=== PATIENT | male | born 1945 | race Caucasian/White ===

== ENCOUNTER → 2024-07-17 09:00 | Outpatient (REF) | payer MEDICARE, OTHER, SELFPAY ==
[2024-07-17 10:34] LABS: % Basophils 1.1 % (0-2); % Eosinophils 1.6 % (0-6); % Immature Granulocytes 0.4 % (0-0.5); % Lymphocytes 18.2 % (20.5-51.1); % Monocytes 9.1 % (1.7-9.3); % Neutrophils 69.6 % (42.2-75.2); Absolute Basophils 0.1 10^3/uL (0-0.2); Absolute Eosinophils 0.1 10^3/uL (0-0.7); Absolute Lymphocytes 1.3 10^3/uL (1.2-3.4); Absolute Monocytes 0.6 10^3/uL (0.1-0.6); Absolute Neutrophils 4.9 10^3/uL (1.4-6.5); Hemoglobin 13.1 g/dL (13.0-18.0); Mean Corp Hgb Conc. 34.5 g/dL (33.0-37.0); Mean Corpuscular Hgb 33.6 pg (27.0-31.0); Mean Corpuscular Volume 97.4 fL (80.0-94.0); Mean Platelet Volume 9.1 fL (7.4-10.4); Nucleated Red Blood Cells % 0 % (-); Platelet Count 243 10^3/uL (130-400)
[2024-07-17 10:40] LABS: INR 1.05; PT 14.2 Sec (11.4-14.6)
[2024-07-17 11:03] LABS: ALT (SGPT) 24 U/L (0-50); AST (SGOT) 29 U/L (17-59); Albumin 4.3 g/dl (3.5-5.0); Alkaline Phosphatase 65 U/L (38-126); Blood Urea Nitrogen 24 mg/dl (9-20); Calcium 8.8 mg/dl (8.4-10.2); Carbon Dioxide 25 mmol/L (22-30); Chloride 104 mmol/L (98-107); Glucose 162 mg/dl (70-99); Magnesium 1.8 mg/dl (1.6-2.3); Potassium 4.7 mmol/L (3.5-5.1); Sodium 140 mmol/L (135-145); Total Bilirubin 0.7 mg/dl (0.2-1.3); Total Protein 6.8 g/dl (6.3-8.2); eGFR > 60.00
== END ==
LOC: SDSPAT 09:00
PROVIDERS: ATTENDING PHYSICIAN Internal Medicine Cardiovascular Disease; FAMILY PHYSICIAN Student in an Organized Health Care Education/Training Program; OTHER PHYSICIAN Internal Medicine Cardiovascular Disease
DX: I48.0 Paroxysmal atrial fibrillation (principal)
CPT/HCPCS: 36415; 75572; 80053; 83735; 85025; 85610; 86850; 86900; 86901; 93005; Q9967

== ENCOUNTER 2024-08-02 07:52 | Day surgery (SDC) | payer MEDICARE, OTHER, SELFPAY ==
[2024-07-17 10:03] VITALS: BMI 34.8
[2024-08-02] VITALS (9 sets, daily range): BP systolic 112–142; BP diastolic 59–81; BMI 33.8
[2024-08-02 09:05] LABS: Glucose - Point of Care 147 mg/dl (70-99)
--- NOTE | 2024-08-02 09:52 | ITS.CL.ABL ---
Data Technical Lead - Ablation
Ablation
Procedure Report:
Primary Hat Brim And Crown Laminating Operator: Naseem Wood MD
Procedure Date: 08/02/2024
Patient History:
Patient is a pleasant 78-year-old male with a past medical history significant for CVA 2022, diabetes mellitus type 2, hypertension, hyperlipidemia, sleep apnea with CPAP, symptomatic paroxysmal atrial fibrillation.
See H&P for complete details.
Indication:
Symptomatic paroxysmal atrial fibrillation
Arrhythmia Specific History:
Prior Medical Therapies for Rate and Rhythm Control:
X Beta-vicente
[ ] Calcium channel-vicente
[ ] Amiodarone
[ ] Dronederone
[ ] Sotalol
[ ] Flecainide
[ ] Dofetilide
[ ] Options limited by bradycardia
[ ] Options limited by comorbid renal disease
Prior Procedural Therapies for AF/AFL:
[ ] Cardioversion
[ ] Pulmonary Vein Isolation
[ ] Posterior Wall Isolation
[ ] Additional lines (Specify)
[ ] Surgical Main-MAZE or PVI (Specify)
Procedure Performed:
X AF ablation procedure (01389) -- includes LA/CS pacing, trans-septal, 3D mapping, + ICE
[ ] +IV drug (52126)
[ ] +Other Arrhythmia (84120)
[ ] +Other AF Line/ablation (30693)
Risks and expected recovery has been explained in detail. Alternative options have been explored, and in a shared-decision making fashion we have decided that this was the most appropriate procedure.
Method
NPO status confirmed. Grounding pad applied. Defibrillator pads applied. Continuous surface ECG, pulse oximetry, and blood pressure were monitored. Procedure was performed under general anesthesia, with anesthesia services.
Both groins were clipped, prepped with Chloraprep, and draped in sterile fashion. Time out was called. Local anesthesia administered with bupivacaine. The right femoral vein was accessed for catheter placement, using ultrasound guidance,
micro-puncture needle/wire, and modified seldinger technique. 3 sheaths were placed. The following catheters were used:
[ ] Tacticath SE (D/F Curve) ablation catheter
X Viewflex 9Fr ICE catheter
X Inquiry decapolar 6Fr diagnostic catheter
[ ] CRD Hex 6Fr
[ ] Arctic Front Advance Cryoballoon ([ ]28mm[ ]23mm)
[ ] Achieve Advance mapping catheter ([ ]15mm[ ]20mm)
X FlexCath Contour 10 Fr with PulseSelect PFA Catheter
X Advisor HD Grid Mapping Catheter, SE
[ ] Acuson AcuNav 8 Fr ICE catheter
[ ]Other: [ ]
Intracardiac ultrasound (ICE) was carefully advanced into the right atrium to guide sheath placement over a J-wire, catheter placement, guide trans-septal puncture, identify potential complications, identify anatomic structures and ensure proper
contact between ablation catheter and tissue.
Heparin was given prior to trans-septal puncture. Heparin was given to achieve and maintain a target ACT of 300-400 seconds throughout the procedure.
Trans-septal access was performed under ICE guidance. The trans-septal puncture was performed with a SafeSept wire through a Brockenbrough needle assembly through the steerable sheath. The wire was visualized as it entered the LSPV and system
advanced under ICE guidance and fluoroscopy into the LA. The Brockenbrough needle assembly, SafeSept wire and sheath dilator were removed under negative pressure. LA pressure was measured and recorded.
ICE and 3D mapping was performed to identify relevant cardiac structures. A careful 3D map was created to assess for regions of low-voltage and abnormal electrogram signals using HD grid mapping catheter and PulseSelect catheter. Additional mapping
was performed as outlined below.
Prior to ablation, glycopyrrolate was provided. PulseSelect catheter was advanced over J-wire to the ostium of each vein. Pulmonary vein isolation was performed with ostial and antral lesions in a circumferential manner. Contact was visualized via
EAM, ICE, fluoroscopy, and EGM signals. Following completion of ablation lesions, a post-ablation voltage/activation map was performed in sinus rhythm. Entrance and exit block were confirmed for each vein.
Catheter and sheath were removed from the left atrium and post-ablation intracardiac echo evaluation was consistent with pre-ablation with no changes and no pericardial effusion and there is no left atrial thrombus or left ventricle thrombus seen.
Electrophysiology study was performed. Hemostasis was obtained with Vascade for each sheath and with manual pressure. Protamine was used for reversal.
Estimated Blood Loss
5 mL
Complications
None
Fluoroscopy: 11.4 minutes; 124.43 mGy; DAP 14.0
Baseline Intervals:
Rhythm: SR
GA: 172 ms
QRS: 102 ms
QT: 396 ms
QTc: 458 ms
A-A: 740 ms
R-R: 740 ms
Post-Procedure Intervals:
GA: 170 ms
QRS: 92 ms
QT: 403 ms
QTc: 450 ms
A-A: 801 ms
R-R: 801 ms
AVWB: 390 ms
AVNERP: 600/310 ms
AERP: 600/270 ms
Recommendations
- Bedrest with straight-leg precautions as ordered
- Anticipate same day discharge if patient meeting clinical metrics
- Resume home medications as indicated
- Ok to resume anticoagulation tonight if patient and groin sites stable
- PPI daily for 30 days
- Plan for follow-up in office as scheduled
Bashir Davidson DO
Clinical Cardiac Residency Director
cc: Naseem Wood MD; Adenike Arredondo MD
[2024-08-02 11:24] LABS: ACT-LR - POC 227 Seconds (116-155)
[2024-08-02 11:41] LABS: ACT-LR - POC 266 Seconds (116-155)
[2024-08-02 12:03] LABS: ACT-LR - POC 287 Seconds (116-155)
[2024-08-02 12:20] LABS: ACT-LR - POC 334 Seconds (116-155)
[2024-08-02 12:20] LABS: ACT-LR - POC 335 Seconds (116-155)
[2024-08-02 12:57] LABS: ACT-LR - POC 229 Seconds (116-155)
[2024-08-02 13:03] LABS: ACT-LR - POC > 397 Seconds (116-155)
[2024-08-02 13:37] LABS: Glucose - Point of Care 129 mg/dl (70-99)
--- NOTE | 2024-08-02 14:18 | PTCARENOTE ---
Noting occasional self limiting episodes of SNB to a rate of 36-37, pt asymptomatic, BP stable, Blossom DELGADO aware, no new orders
--- NOTE | 2024-08-02 15:50 | W.PN.UPDATE ---
Update Note
Progress Note Update
78 yo WM s/p PVI (same day). He denies cp, sob, sho diet, voiding, amb w/o dizziness, EKG SR/SB, R fem site c/d/i no HT. He will resume Eliquis tonight at 7pm. Activity restrictions reviewed. He will f/u Dr. Delgado in 1 mo. He is for d/c home after
4pm.
== END 2024-08-02 16:05 | disposition home or self-care (01) ==
LOC: CATH 07:52
PROVIDERS: ATTENDING PHYSICIAN Internal Medicine Cardiovascular Disease; FAMILY PHYSICIAN Student in an Organized Health Care Education/Training Program; OTHER PHYSICIAN Internal Medicine Cardiovascular Disease
DX: I48.0 Paroxysmal atrial fibrillation (principal); I10 Essential (primary) hypertension; E78.5 Hyperlipidemia, unspecified; H53.9 Unspecified visual disturbance; Z86.73 Personal history of transient ischemic attack (TIA), and cerebral infarction without residual deficits; Z86.718 Personal history of other venous thrombosis and embolism; E66.9 Obesity, unspecified; Z68.34 Body mass index [BMI] 34.0-34.9, adult; E11.9 Type 2 diabetes mellitus without complications; Z79.899 Other long term (current) drug therapy; Z79.01 Long term (current) use of anticoagulants; Z87.891 Personal history of nicotine dependence; G47.30 Sleep apnea, unspecified
CPT/HCPCS: C1732; C1894; C1769; C1892; C1759; C1733; C1766; 82962; 85347; 86900; 86901; 93005; 93656; C1730; C1760

== ENCOUNTER 2024-10-31 06:27 | Day surgery (SDC) | payer MEDICARE, OTHER, SELFPAY | END 2024-10-31 08:30 | disposition home or self-care (01) | LOC: CATH 06:27 | PROVIDERS: ATTENDING PHYSICIAN Internal Medicine Cardiovascular Disease; FAMILY PHYSICIAN Student in an Organized Health Care Education/Training Program; OTHER PHYSICIAN Internal Medicine Cardiovascular Disease | DX: Z53.09 Procedure and treatment not carried out because of other contraindication (principal); I44.0 Atrioventricular block, first degree | CPT/HCPCS: 93005 ==

== ENCOUNTER → 2024-12-26 09:11 | Outpatient (REF) | payer MEDICARE, OTHER, SELFPAY ==
[2024-12-26 10:34] LABS: % Basophils 1.1 % (0-2); % Eosinophils 2.2 % (0-6); % Immature Granulocytes 0.5 % (0-0.5); % Lymphocytes 18.8 % (20.5-51.1); % Monocytes 8.1 % (1.7-9.3); % Neutrophils 69.3 % (42.2-75.2); Absolute Basophils 0.1 10^3/uL (0-0.2); Absolute Eosinophils 0.1 10^3/uL (0-0.7); Absolute Lymphocytes 1.2 10^3/uL (1.2-3.4); Absolute Monocytes 0.5 10^3/uL (0.1-0.6); Absolute Neutrophils 4.3 10^3/uL (1.4-6.5); Hematocrit 39.6 % (39.0-52.0); Hemoglobin 13.7 g/dL (13.0-18.0); Mean Corp Hgb Conc. 34.6 g/dL (33.0-37.0); Mean Corpuscular Hgb 32.9 pg (27.0-31.0); Mean Corpuscular Volume 95.2 fL (80.0-94.0); Mean Platelet Volume 9.2 fL (7.4-10.4); Nucleated Red Blood Cells % 0 % (-); Platelet Count 241 10^3/uL (130-400); Red Blood Cell Count 4.16 10^6/uL (4.70-6.10); Red Cell Dist. Width 12.7 % (11.5-14.5); White Blood Cell Count 6.3 10^3/uL (4.8-10.8)
[2024-12-26 10:48] LABS: PT 14.7 Sec (11.4-14.6)
[2024-12-26 11:37] LABS: ALT (SGPT) 29 U/L (0-50); AST (SGOT) 25 U/L (17-59); Albumin 4.3 g/dl (3.5-5.0); Alkaline Phosphatase 70 U/L (38-126); Blood Urea Nitrogen 20 mg/dl (9-20); Calcium 9.2 mg/dl (8.4-10.2); Carbon Dioxide 22 mmol/L (22-30); Chloride 107 mmol/L (98-107); Glucose 161 mg/dl (70-99); Magnesium 1.7 mg/dl (1.6-2.3); Potassium 4.4 mmol/L (3.5-5.1); Sodium 139 mmol/L (135-145); Total Protein 6.8 g/dl (6.3-8.2); eGFR > 60.00
== END ==
LOC: SDSPAT 09:11
PROVIDERS: ATTENDING PHYSICIAN Internal Medicine Cardiovascular Disease; FAMILY PHYSICIAN Student in an Organized Health Care Education/Training Program; OTHER PHYSICIAN Internal Medicine Cardiovascular Disease
DX: I48.0 Paroxysmal atrial fibrillation (principal)
CPT/HCPCS: 36415; 80053; 83735; 85025; 85610; 86850; 86900; 86901; 93005

== ENCOUNTER → 2025-01-09 06:50 | Day surgery (SDC) | payer MEDICARE, OTHER, SELFPAY ==
--- NOTE | 2024-12-27 07:51 | HPS.HSE ---
Family Physician
-
Family Physician: NO INTERVIEW UNKNOWN
Chief Complaint
-
Paroxysmal atrial fibrillation.
History of Present Illness
The patient is a 79 year old male presenting today for paroxysmal atrial fibrillation. The patient reports a history of dyspnea on exertion, palpitations, and fatigue likely secondary to this diagnosis. He previously underwent pulmonary
vein isolation with Dr. Bashir Davidson in July 2024. Unfortunately, he had an early recurrence of his arrhythmia soon after his procedure. He was set up for a cardioversion in October of this year. His procedure, however, was cancelled as he was
noted to be in normal sinus rhythm. He is on current pharmacological therapy with Metoprolol Succinate. He does take Eliquis for oral anticoagulation due to a [id number] of 6. He is interested in pursuing with repeat pulmonary vein isolation for
further arrhythmia management. Prior to his ablation, he will proceed first with a transesophageal echocardiogram to definitively rule out a left atrial appendage thrombus. He denies any current complaints today such as chest pain, shortness of
breath at rest, nausea, vomiting, diarrhea, lightheadedness, dizziness, cough, sore throat, or fever.
Medical History
Past Medical History
Past Medical History: Reports Other
Additional Past Medical History:
1. Paroxysmal atrial fibrillation, status post pulmonary vein isolation 07/2024; pharmacological therapy with Metoprolol Succinate and oral anticoagulation with Eliquis.
2. Hypertension.
3. Hyperlipidemia.
4. First degree AV block.
5. Remote right lower extremity DVT, provoked.
6. Obstructive sleep apnea, compliant with CPAP.
7. Non-insulin dependent diabetes.
8. 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
9. Basal cell carcinoma, status post excision.
10. Obesity, BMI 36.0.
11. Remote tobacco abuse.
12. Daily alcohol.
Past Surgical History: Reports Other
Additional Past Surgical History:
1. Pulmonary vein isolation.
2. Basal cell carcinoma excision.
Social History
Tobacco: Former Smoker (He is a former pipe smoker who quit tobacco altogether in 1985.)
Alcohol: Daily (He typically consumes 1-2 glasses of wine daily. He recently has been diluting his wine with water.)
Living: Alone (in a 2 story townhouse. )
Family History
Family History: Not pertinent
Allergies / Home Medications
Allergy/Medication List:
Home medications:
1. Apple cider vinegar 1 dose p.o. daily.
2. Cinnamon 1 dose p.o. daily.
3. Cyanocobalamin 1000 mcg p.o. daily.
4. Eliquis 5 mg p.o. twice a day.
5. Metoprolol Succinate 50 mg p.o. twice a day.
6. Multivitamin 1 tablet p.o. daily.
7. Simvastatin 20 mg p.o. every evening.
8. Super Beta Prostate 1 dose p.o. daily.
9. Ultra cranberry 1 dose p.o. daily.
10. Vitamin D3 1 dose p.o. daily.
Allergies: Seasonal. No known drug allergies.
Review of Systems
-
A 12 point ROS was completed and negative except as noted: Yes
Physical Exam
Vital Signs
Blood pressure 146/94. Heart rate 95. Respirations 18. Pulse ox 98% on room air.
Height 5 feet, 10 inches. Weight 113.8 kg. BMI 36.0.
Physical Exam
General: Well Developed, Well Nourished and No Apparent Distress
HEENT: NormoCephalic, Moist mucous membranes, Atraumatic and Other (Right visual defect. )
Respiratory: Clear
Cardiac: Irregular Rhythm
GI: Soft, Non Tender, Non Distended and Other (Obese. )
Musculoskeletal: Normal Gait & Station and Other (Trace sock-line edema of bilateral lower extremities.)
Skin: Warm and Dry
Neuro: AO x 3 and Nonfocal/grossly intact
Laboratory Results
-
DIAGNOSTIC STUDIES as of 12/26/2024: White blood cell count 6.3. Hemoglobin 13.7. Platelet count 241,000. PT 14.7. INR 1.10. Sodium 139. Potassium 4.4. BUN 20. Creatinine 1.2. Glucose 161. Calcium 9.2. Magnesium 1.7. AST 25. ALT 29. Albumin 4.3.
Type and screen O negative.
EKG 12/26/2024: Sinus rhythm with first degree AV block. Left axis deviation. No significant change since the prior EKG of 10/31/2024.
Chest CT 07/17/2024: Short segment common vestibule for the left superior and inferior pulmonary veins, fairly commonly seen and considered normal variant. No evidence for left atrial thrombus.
Echocardiogram 08/2022: Ejection fraction is 60%. Mild left ventricular hypertrophy. Moderate left atrial dilation. Borderline right atrial dilation. Aorta 3.9 cm at the sinuses.
Impression/Plan
-
IMPRESSION/PLAN:
1. Paroxysmal atrial fibrillation: The patient is in need of pulmonary vein isolation for further arrhythmia management. Prior to this procedure, he will first undergo a transesophageal echocardiogram with Dr. Sal Hatfield on 01/09/2025. The
benefits and risks of the procedure have been explained to the patient. The patient understands these risks and wishes to proceed. He is aware to continue compliance with his Eliquis pre-operatively.
[2025-01-09 07:40] VITALS: BMI 36.0
== END ==
LOC: CATH 06:50
PROVIDERS: ATTENDING PHYSICIAN Internal Medicine Cardiovascular Disease; FAMILY PHYSICIAN Student in an Organized Health Care Education/Training Program; OTHER PHYSICIAN Internal Medicine Cardiovascular Disease
DX: I48.0 Paroxysmal atrial fibrillation (principal); I08.3 Combined rheumatic disorders of mitral, aortic and tricuspid valves; I08.8 Other rheumatic multiple valve diseases; I70.0 Atherosclerosis of aorta; E11.9 Type 2 diabetes mellitus without complications; E66.9 Obesity, unspecified; E78.5 Hyperlipidemia, unspecified; G47.33 Obstructive sleep apnea (adult) (pediatric); I10 Essential (primary) hypertension; Z79.01 Long term (current) use of anticoagulants; Z79.84 Long term (current) use of oral hypoglycemic drugs; Z79.899 Other long term (current) drug therapy; Z86.718 Personal history of other venous thrombosis and embolism; Z86.73 Personal history of transient ischemic attack (TIA), and cerebral infarction without residual deficits; Z87.891 Personal history of nicotine dependence; Z85.828 Personal history of other malignant neoplasm of skin
CPT/HCPCS: 93312; 93320; 93325

== ENCOUNTER 2025-04-10 06:50 | Day surgery (SDC) | payer MEDICARE, OTHER, SELFPAY | END 2025-04-10 10:15 | disposition home or self-care (01) | LOC: CATH 06:50 | PROVIDERS: ATTENDING PHYSICIAN Nuclear Medicine Nuclear Cardiology; FAMILY PHYSICIAN Student in an Organized Health Care Education/Training Program; OTHER PHYSICIAN Internal Medicine Cardiovascular Disease | DX: I48.19 Other persistent atrial fibrillation (principal); I48.4 Atypical atrial flutter; I51.3 Intracardiac thrombosis, not elsewhere classified; I10 Essential (primary) hypertension; E78.5 Hyperlipidemia, unspecified; G47.33 Obstructive sleep apnea (adult) (pediatric); E11.59 Type 2 diabetes mellitus with other circulatory complications; Z86.73 Personal history of transient ischemic attack (TIA), and cerebral infarction without residual deficits; Z79.01 Long term (current) use of anticoagulants | CPT/HCPCS: 93312; 93320; 93325 ==

== ENCOUNTER 2025-04-22 06:44 | Outpatient (RCR) | payer MEDICARE, OTHER, SELFPAY | END 2025-04-22 23:59 | disposition home or self-care (01) | LOC: RPT 06:44 | PROVIDERS: ATTENDING PHYSICIAN Student in an Organized Health Care Education/Training Program | DX: M25.552 Pain in left hip (principal); M62.81 Muscle weakness (generalized); Z73.6 Limitation of activities due to disability | CPT/HCPCS: 97110; 97112; 97162 ==

== ENCOUNTER 2025-05-19 08:49 | Outpatient (RCR) | payer MEDICARE, OTHER, SELFPAY | END 2025-05-19 23:59 | disposition home or self-care (01) | LOC: RPT 08:49 | PROVIDERS: ATTENDING PHYSICIAN Student in an Organized Health Care Education/Training Program | DX: M25.552 Pain in left hip (principal); M62.81 Muscle weakness (generalized); Z73.6 Limitation of activities due to disability | CPT/HCPCS: 97110; 97112 ==

== ENCOUNTER 2025-06-24 08:13 | Outpatient (RCR) | payer MEDICARE, OTHER, SELFPAY | END 2025-06-24 12:23 | disposition home or self-care (01) | LOC: RPT 08:13 | PROVIDERS: ATTENDING PHYSICIAN Student in an Organized Health Care Education/Training Program | DX: M25.552 Pain in left hip (principal); M62.81 Muscle weakness (generalized); Z73.6 Limitation of activities due to disability | CPT/HCPCS: 97110; 97140 ==

== ENCOUNTER 2025-07-17 06:54 | Day surgery (SDC) | payer MEDICARE, OTHER, SELFPAY | END 2025-07-17 10:29 | disposition home or self-care (01) | LOC: CATH 06:54 | PROVIDERS: ATTENDING PHYSICIAN Internal Medicine Cardiovascular Disease; FAMILY PHYSICIAN Student in an Organized Health Care Education/Training Program | DX: I48.19 Other persistent atrial fibrillation (principal); I08.1 Rheumatic disorders of both mitral and tricuspid valves; I70.0 Atherosclerosis of aorta; Z86.73 Personal history of transient ischemic attack (TIA), and cerebral infarction without residual deficits; E78.5 Hyperlipidemia, unspecified; Z79.01 Long term (current) use of anticoagulants; E11.9 Type 2 diabetes mellitus without complications | CPT/HCPCS: 93312; 93320; 93325 ==